=== PATIENT | female | born 1945 | race Caucasian/White ===

== ENCOUNTER 2020-07-29 14:16 | Emergency (ER) | payer OTHER ==
[~2020-07-29] VITALS: Ht 154.9 cm; Wt 68.5 kg
[~2020-07-29 14:16] MED LIST: LAMICTAL25 M1 PO; LAMICTAL25 MG PO; WELLBUTRIN XL300 MG PO
[2020-07-29] MEDS ORDERED: CELEBREX100 MG PO (18:35)
[2020-08-10] MEDS ORDERED: VITAMIN D310 MCG/1 M PO (10:02)
[2020-08-10] MEDS ORDERED: LIPITOR20 MG PO (10:03)
== END 2020-07-29 18:49 | disposition home or self-care (01) ==
LOC: ER 14:16
DX: S52.591A Other fractures of lower end of right radius, initial encounter for closed fracture (principal); M25.531 Pain in right wrist; W20.8XXA Other cause of strike by thrown, projected or falling object, initial encounter; Y93.89 Activity, other specified; Y92.038 Other place in apartment as the place of occurrence of the external cause; Y99.8 Other external cause status

== ENCOUNTER 2020-08-15 06:25 | Day surgery (SDC) | payer OTHER ==
[~2020-08-15 06:25] MED LIST changes: +CELEBREX100 MG PO; +LIPITOR20 MG PO; +VITAMIN D310 MCG/1 M PO
== END 2020-08-15 14:25 | disposition home or self-care (01) ==
LOC: CIR.AMB 06:25
PROVIDERS: ATTEND Orthopaedic Surgery Hand Surgery
DX: S52.531A Colles' fracture of right radius, initial encounter for closed fracture (principal); Z20.822 Contact with and (suspected) exposure to COVID-19
CPT/HCPCS: 25609; 25118; 25280; C1776

== ENCOUNTER 2020-08-31 12:49 | Outpatient (CLI) | payer OTHER | END 2020-08-31 12:54 | disposition home or self-care (01) | LOC: RAD 12:49 | PROVIDERS: ATTEND Orthopaedic Surgery Hand Surgery | DX: M25.531 Pain in right wrist (principal) ==

== ENCOUNTER 2020-12-07 11:57 | Outpatient (CLI) | payer OTHER | END 2020-12-07 12:03 | disposition home or self-care (01) | LOC: SONOGRAMA 11:57 | PROVIDERS: ATTEND Internal Medicine | DX: R10.84 Generalized abdominal pain (principal); M81.0 Age-related osteoporosis without current pathological fracture; E78.1 Pure hyperglyceridemia; M15.0 Primary generalized (osteo)arthritis; R10.10 Upper abdominal pain, unspecified; E55.9 Vitamin D deficiency, unspecified ==

== ENCOUNTER 2021-07-17 10:45 | Outpatient (CLI) | payer OTHER | END 2021-07-17 10:46 | disposition home or self-care (01) | LOC: RAD 10:45 | DX: M54.2 Cervicalgia (principal) ==

== ENCOUNTER → 2021-07-27 | Outpatient (CLI) | payer OTHER | END | disposition home or self-care (01) | LOC: RAD 14:35 | PROVIDERS: ATTEND Internal Medicine | DX: J20.8 Acute bronchitis due to other specified organisms (principal) ==

== ENCOUNTER 2021-08-13 13:29 | Outpatient (CLI) | payer OTHER | END 2021-08-13 15:20 | disposition home or self-care (01) | LOC: MAMO-SONO 13:29 | PROVIDERS: ATTEND Internal Medicine | DX: Z12.31 Encounter for screening mammogram for malignant neoplasm of breast (principal); N64.4 Mastodynia ==